=== PATIENT | male | born 1975 | race African-American/Black ===

== ENCOUNTER 2020-12-03 12:26 | Inpatient (IN) ==
[2020-12-03] MEDS ORDERED: PANTOPRAZOLE 40 MG VIAL IV STA (13:38)
[2020-12-03 13:52] LABS: Basophils % 0.2 % (0.0-0.8); Eosinophils % 0.2 % (0.00-10.9); Hematocrit 43.1 VOL% (42.0-52.0); Immature Granulocytes % 0.5 %; Immature Granulocytes Absolute 0.02 #; Lymphocytes # 1.1 10*3/uL (1.4-4.0); Lymphocytes % 27.7 % (21.2-54.2); Mean Corpuscular HGB Conc 32.5 GM/DL (32-36); Mean Corpuscular Volume 98.9 FL (87-102); Mean Platelet Volume 8.6 FL (9.6-12.0); Monocytes % 7.6 % (1.7-12.7); NRBC # 0.03 10*3/uL; Neutrophils % 63.8 % (38.7-73.9); Platelet Count 331 T/CUMM (130-400); Red Blood Count 4.36 MC/CUMM (3.8-5.5); Red Cell Distribution Width 13.7 % (9.3-17.3); White Blood Count 4.1 T/CUMM (4-12)
[2020-12-03 14:02] LABS: INR 1.1; PT Patient Result 11.9 SECS (10.5-12.0)
[2020-12-03 14:18] LABS: Albumin 3.2 G/DL (3.4-5.0); Bilirubin,Total 0.6 MG/DL (0.20-1.00); Calcium 8.9 MG/DL (8.5-10.1); Osmolality,Calculated 267.2 MOS/KG (273-304); Total Protein 7.8 G/DL (6.4-8.2)
[2020-12-03 15:26] LABS: Hepatitis B Core IgM Quant < 0.05 Index; Hepatitis B Surface Ag Quant 0.14 Index; Hepatitis B Surface Ag Result Non-Reactive (NonReactive); Hepatitis C Virus Ab Quant 0.04 Index; Hepatitis C Virus Ab Result Non-Reactive (NonReactive)
[2020-12-03] MEDS ORDERED: ACETYLCYSTEINE INJ 15,000 MG in DEXTROSE 5% 100 ML IV ONE (16:36)
[2020-12-03] MEDS ORDERED: hydrALAZINE 20 MG/1 ML VIAL IV PRN (16:57)
[2020-12-03] MEDS ORDERED: diphenhydrAMINE CAP 25 MG CAPSULE PO PRN (16:57)
[2020-12-03] MEDS ORDERED: guaiFENesin/DM ER 600-30 MG TABLET PO PRN (16:57)
[2020-12-03] MEDS ORDERED: GLUCAGON 1 MG VIAL IM PRN (16:57)
[2020-12-03] MEDS ORDERED: NICOTINE 21 MG/24 HR PATCH TRANSDERM PRN (16:57)
[2020-12-03] MEDS ORDERED: DOCUSATE SODIUM 100 MG CAPSULE PO PRN (16:57)
[2020-12-03] MEDS ORDERED: DEXTROSE 50% 25 GM/50 ML VIAL IV PRN (16:57)
[2020-12-03] MEDS ORDERED: ZALEPLON 5 MG CAPSULE PO PRN (16:57)
[2020-12-03] MEDS: SODIUM CHLORIDE 0.9% 1,000 ML IV SCH (17:24)
[2020-12-03] MEDS ORDERED: ACETYLCYSTEINE INJ 5,000 MG in DEXTROSE 5% 250 ML IV ONE (18:00)
[2020-12-03] MEDS: MORPHINE 2 MG/1 ML SYRINGE IV PRN (19:20)
[2020-12-03] MEDS ORDERED: ACETYLCYSTEINE INJ 10,000 MG in DEXTROSE 5% 1,000 ML IV ONE (22:00)
[2020-12-04] MEDS: MORPHINE 2 MG/1 ML SYRINGE IV PRN ×5 (00:48→21:49)
[2020-12-04] MEDS ORDERED: amLODIPine 10 MG TABLET PO ONE (01:17)
[2020-12-04] MEDS: SODIUM CHLORIDE 0.9% 1,000 ML IV SCH (04:23)
[2020-12-04 04:33] LABS: Basophils % 0.2 % (0.0-0.8); Eosinophils # 0.1 10*3/uL (0.0-0.87); Eosinophils % 1.4 % (0.00-10.9); Hematocrit 42.4 VOL% (42.0-52.0); Hemoglobin 14.3 GM/DL (14.0-18.0); Immature Granulocytes % 0.7 %; Immature Granulocytes Absolute 0.03 #; Lymphocytes # 1.1 10*3/uL (1.4-4.0); Lymphocytes % 25.9 % (21.2-54.2); Mean Corpuscular HGB Conc 33.7 GM/DL (32-36); Mean Corpuscular Volume 96.4 FL (87-102); Mean Platelet Volume 8.4 FL (9.6-12.0); Monocytes % 6.5 % (1.7-12.7); NRBC # 0.02 10*3/uL; Neutrophils % 65.3 % (38.7-73.9); Platelet Count 368 T/CUMM (130-400); Red Cell Distribution Width 13.3 % (9.3-17.3); White Blood Count 4.3 T/CUMM (4-12)
[2020-12-04 05:10] LABS: Albumin 2.8 G/DL (3.4-5.0); Bilirubin,Total 1.2 MG/DL (0.20-1.00); Calcium 8.7 MG/DL (8.5-10.1); Osmolality,Calculated 265.4 MOS/KG (273-304); Potassium 3.6 MMOL/L (3.5-5.1); Total Protein 6.9 G/DL (6.4-8.2)
[2020-12-04] MEDS: ONDANSETRON 4 MG/2 ML VIAL IV PRN ×2 (06:53→21:48)
[2020-12-04] MEDS: PANTOPRAZOLE INJ 200 MG in SODIUM CHLORIDE 0.9% 250 ML IV SCH (06:54)
[2020-12-04] MEDS: amLODIPine 10 MG TABLET PO SCH (09:21)
[2020-12-04 12:56] LABS: Hepatitis B Core IgM Quant < 0.05 Index; Hepatitis B Surface Ag Result Non-Reactive (NonReactive); Hepatitis C Virus Ab Quant 0.03 Index; Hepatitis C Virus Ab Result Non-Reactive (NonReactive)
[2020-12-04 15:58] LABS: Albumin 2.9 G/DL (3.4-5.0); Bilirubin,Direct 0.23 MG/DL (0.0-0.20); Bilirubin,Indirect 0.4 MG/DL (0.0-1.0); Bilirubin,Total 0.6 MG/DL (0.20-1.00)
[2020-12-04] MEDS ORDERED: ACETYLCYSTEINE INJ 10,000 MG in DEXTROSE 5% 1,000 ML IV ONE (20:52)
[2020-12-05] MEDS: ONDANSETRON 4 MG/2 ML VIAL IV PRN ×5 (04:22→23:28)
[2020-12-05] MEDS: MORPHINE 2 MG/1 ML SYRINGE IV PRN ×5 (04:23→23:23)
[2020-12-05 04:45] LABS: Basophils % 0.4 % (0.0-0.8); Eosinophils # 0.2 10*3/uL (0.0-0.87); Eosinophils % 3.2 % (0.00-10.9); Hemoglobin 13.3 GM/DL (14.0-18.0); Immature Granulocytes % 0.4 %; Immature Granulocytes Absolute 0.02 #; Lymphocytes # 1.8 10*3/uL (1.4-4.0); Lymphocytes % 35.1 % (21.2-54.2); Mean Corpuscular HGB Conc 33.3 GM/DL (32-36); Mean Corpuscular Volume 95.5 FL (87-102); Mean Platelet Volume 8.3 FL (9.6-12.0); Neutrophils % 54.9 % (38.7-73.9); Platelet Count 426 T/CUMM (130-400); Red Blood Count 4.19 MC/CUMM (3.8-5.5); Red Cell Distribution Width 13.5 % (9.3-17.3)
[2020-12-05] MEDS: SODIUM CHLORIDE 0.9% 1,000 ML IV SCH ×2 (04:55→18:11)
[2020-12-05 04:58] LABS: INR 1.4; PT Patient Result 15.5 SECS (10.5-12.0); Partial Thromboplastin Time 30.2 SECS (23.9-33.8)
[2020-12-05 05:21] LABS: Albumin 2.4 G/DL (3.4-5.0); Bilirubin,Total 1.1 MG/DL (0.20-1.00); Calcium 8.4 MG/DL (8.5-10.1); Osmolality,Calculated 271.8 MOS/KG (273-304); Potassium 3.8 MMOL/L (3.5-5.1); Total Protein 6.4 G/DL (6.4-8.2)
[2020-12-05 05:22] LABS: Albumin 2.4 G/DL (3.4-5.0); Bilirubin,Direct 0.3 MG/DL (0.0-0.20); Bilirubin,Indirect 0.6 MG/DL (0.0-1.0); Bilirubin,Total 0.9 MG/DL (0.20-1.00); Total Protein 6.3 G/DL (6.4-8.2)
[2020-12-05] MEDS: PANTOPRAZOLE INJ 200 MG in SODIUM CHLORIDE 0.9% 250 ML IV SCH (08:40)
[2020-12-05] MEDS: amLODIPine 10 MG TABLET PO SCH (08:50)
[2020-12-05] MEDS ORDERED: PNEUMOCOCCAL VACCINE (23 VALENT) 0.5 ML VIAL IM ONE (09:00)
[2020-12-06] MEDS: SODIUM CHLORIDE 0.9% 1,000 ML IV SCH ×3 (02:08→23:17)
[2020-12-06] MEDS: ONDANSETRON 4 MG/2 ML VIAL IV PRN ×4 (03:33→21:46)
[2020-12-06] MEDS: MORPHINE 2 MG/1 ML SYRINGE IV PRN ×4 (03:35→21:48)
[2020-12-06 05:17] LABS: Basophils % 0.4 % (0.0-0.8); Eosinophils # 0.1 10*3/uL (0.0-0.87); Eosinophils % 2.3 % (0.00-10.9); Hematocrit 37.1 VOL% (42.0-52.0); Hemoglobin 12.3 GM/DL (14.0-18.0); Immature Granulocytes % 0.4 %; Immature Granulocytes Absolute 0.02 #; Lymphocytes # 1.9 10*3/uL (1.4-4.0); Lymphocytes % 36.5 % (21.2-54.2); Mean Corpuscular HGB Conc 33.2 GM/DL (32-36); Mean Corpuscular Volume 97.1 FL (87-102); Mean Platelet Volume 8.2 FL (9.6-12.0); Monocytes % 8.3 % (1.7-12.7); Neutrophils % 52.1 % (38.7-73.9); Platelet Count 456 T/CUMM (130-400); Red Blood Count 3.82 MC/CUMM (3.8-5.5); Red Cell Distribution Width 13.5 % (9.3-17.3); White Blood Count 5.2 T/CUMM (4-12)
[2020-12-06 05:22] LABS: INR 1.1; PT Patient Result 11.9 SECS (10.5-12.0); Partial Thromboplastin Time 30.1 SECS (23.9-33.8)
[2020-12-06 05:48] LABS: Albumin 2.5 G/DL (3.4-5.0); Calcium 8.4 MG/DL (8.5-10.1); Osmolality,Calculated 277.4 MOS/KG (273-304); Potassium 4.1 MMOL/L (3.5-5.1); Total Protein 6.1 G/DL (6.4-8.2)
[2020-12-06] MEDS: amLODIPine 10 MG TABLET PO SCH (08:53)
[2020-12-06] MEDS ORDERED: LORazepam 2 MG/1 ML VIAL IV ONE (09:00)
[2020-12-06] MEDS: PANTOPRAZOLE INJ 200 MG in SODIUM CHLORIDE 0.9% 250 ML IV SCH (09:04)
[2020-12-06 15:02] LABS: Smooth Muscle Antibody Negative (Negative)
[2020-12-06] MEDS ORDERED: ENOXAPARIN 40 MG/0.4 ML SYRINGE SUBCUT SCH (16:30)
[2020-12-07] MEDS: ONDANSETRON 4 MG/2 ML VIAL IV PRN ×3 (02:37→11:24)
[2020-12-07] MEDS: MORPHINE 2 MG/1 ML SYRINGE IV PRN ×3 (02:39→11:24)
[2020-12-07 05:37] LABS: Basophils % 0.4 % (0.0-0.8); Eosinophils # 0.1 10*3/uL (0.0-0.87); Eosinophils % 1.3 % (0.00-10.9); Hematocrit 36.3 VOL% (42.0-52.0); Immature Granulocytes % 0.2 %; Immature Granulocytes Absolute 0.01 #; Lymphocytes # 1.4 10*3/uL (1.4-4.0); Lymphocytes % 27.1 % (21.2-54.2); Mean Corpuscular HGB Conc 33.1 GM/DL (32-36); Mean Corpuscular Volume 97.6 FL (87-102); Mean Platelet Volume 8.2 FL (9.6-12.0); Monocytes % 11.8 % (1.7-12.7); Neutrophils % 59.2 % (38.7-73.9); Platelet Count 486 T/CUMM (130-400); Red Blood Count 3.72 MC/CUMM (3.8-5.5); Red Cell Distribution Width 13.5 % (9.3-17.3); White Blood Count 5.3 T/CUMM (4-12)
[2020-12-07 05:58] LABS: Albumin 2.5 G/DL (3.4-5.0); Bilirubin,Total 0.8 MG/DL (0.20-1.00); Calcium 8.3 MG/DL (8.5-10.1); Osmolality,Calculated 275.4 MOS/KG (273-304); Potassium 3.9 MMOL/L (3.5-5.1); Total Protein 6.1 G/DL (6.4-8.2)
[2020-12-07 06:03] LABS: INR 1.1; PT Patient Result 11.8 SECS (10.5-12.0); Partial Thromboplastin Time 29.3 SECS (23.9-33.8)
[2020-12-07 06:08] LABS: Antinuclear Ab, S 0.2 U
[2020-12-07] MEDS: amLODIPine 10 MG TABLET PO SCH (09:36)
[2020-12-07] MEDS: SODIUM CHLORIDE 0.9% 1,000 ML IV SCH (10:42)
[2020-12-07] MEDS ORDERED: TRIAMCINOLONE ACETONIDE 40 MG/1 ML VIAL ONE ×2 (12:16→12:17)
[2020-12-07] MEDS ORDERED: methylPREDNISolone ACETATE 80 MG/1 ML VIAL ONE (12:17)
[2020-12-07] MEDS ORDERED: DEXAMETHASONE 10 MG/1 ML VIAL ONE (12:17)
[2020-12-07] MEDS ORDERED: MIDAZOLAM 2 MG/2 ML VIAL ONE (12:29)
[2020-12-07 14:47] VITALS: BP 129/86
[2020-12-07] MEDS ORDERED: PANTOPRAZOLE 40 MG VIAL IV SCH (21:00)
== END 2020-12-07 15:23 | disposition home or self-care (01) | DRG 918 ==
LOC: N.ED 12:26 → N.EDINP 16:57 → SUATTDRO 16:57 → N.5E 18:54
PROVIDERS: ADMIT Internal Medicine; ATTEND Internal Medicine